=== PATIENT | female | born 1955 | race Hispanic/Latino ===

== ENCOUNTER 2017-07-18 19:01 | Emergency (ER) | payer BC ==
[2017-07-18] MEDS ORDERED: Adacel (T-DAP) 0.5 ML VIAL ONE (19:35)
[2017-07-18] MEDS ORDERED: Proparacaine 0.5% Opth 15 ML BOT ONE (20:27)
== END 2017-07-18 23:01 | disposition home or self-care (01) ==
LOC: ERS 19:01
DX: Z77.098 Contact with and (suspected) exposure to other hazardous, chiefly nonmedicinal, chemicals (principal); H11.001 Unspecified pterygium of right eye; E78.5 Hyperlipidemia, unspecified
CPT/HCPCS: 90471; 90715

== ENCOUNTER 2018-01-13 07:31 | Outpatient (CLI) | payer BC ==
--- NOTE | 2018-01-13 08:36 | ULT ---
ABDOMEN ULTRASOUND: HISTORY: Pain. COMPARISON: None. TECHNIQUE: Utilizing a Multi-Hertz transducer, sonographic imaging of the abdomen is performed in the longitudin al and transverse planes. FINDINGS: The pancreas is obscured by bowel gas. The visualized aorta has a diameter of 1.5 cm. Suboptimal ev aluation of the IVC. Increased echogenicity of the liver may be due to hepatic steatosis or hepatocellular disease. Limit ed evaluation for hepatic masses and intrahepatic biliary dilatation. The right hepatic lobe measure s 17.2 cm. No sonographic evidence of cholelithiasis, gallbladder wall thickening, or pericholecystic fluid. Ne gative Rodrigues sign. Common bile duct diameter is 0.5 cm. The spleen measures 11.7 cm. Bilaterally, no hydronephrosis. There are two separate hypoechoic areas in the left renal cortex, me asuring 2.3 and 2.8 cm, respectively. The left kidney measures 11.6 x 5 x 4.3 cm. The right kidney measures 4 x 9.9 x 4.7 cm. IMPRESSION: Two solid echotexture masses in the left kidney, incompletely evaluated. Correlation made with previ ous CT, 01/28/2017, demonstrates homogeneous attenuation and enhancement of the kidneys. These hypoe choic areas likely represent lobulation of renal parenchyma. Increased echogenicity of the liver due to hepatic steatosis or hepatocellular disease. POS: NE
== END 2018-01-13 07:32 | disposition home or self-care (01) ==
LOC: BICULT 07:31
PROVIDERS: ATTEND Family Medicine
DX: R10.9 Unspecified abdominal pain (principal); R93.422 Abnormal radiologic findings on diagnostic imaging of left kidney
CPT/HCPCS: 76700

== ENCOUNTER 2018-02-13 08:11 | Outpatient (CLI) | payer BC | END 2018-02-13 08:12 | disposition home or self-care (01) | LOC: BICMAMMO 08:11 | PROVIDERS: ATTEND Family Medicine | DX: Z12.31 Encounter for screening mammogram for malignant neoplasm of breast (principal) | CPT/HCPCS: 77063; 77067 ==

== ENCOUNTER 2018-09-06 06:32 | Outpatient (CLI) | payer BC ==
--- NOTE | 2018-09-06 08:07 | ULT ---
ULTRASOUND ABDOMEN: Date: 09/06/18 HISTORY: Abdominal pain. COMPARISON: Ultrasound dated 01/13/18. FINDINGS: Real-time Miller scale with color Doppler and spectral analysis of the abdomen was performed. The pancreas is not well seen. Visualized portions of the aorta and IVC are unremarkable. Diffuse inc reased hepatic echotexture. Gallbladder is normal. Portal vein is patent with antegrade flow. Slight contour and nodularity of the liver. Common bile duct is normal, measuring 5 mm. Gallbladder wall thickness is normal. No pericholecystic fluid. Right kidney measures 12.3 x 4.6 x 5.3 cm. Left kidney measures 12.4 x 4.9 x 4.7 cm. No renal mass, h ydronephrosis, or abnormal calcifications. Spleen measures 11.7 cm in length. IMPRESSION: 1. Diffuse increased hepatic echotexture with slight contour and nodularity may be seen with steatos is versus early hepatocellular disease. 2. No acute gallbladder pathology. POS: C
--- NOTE | 2018-09-06 08:34 | RAD ---
AP pelvis one view HISTORY: Pelvic pain. FINDINGS: Sacral alae and pelvic rings are intact. Mild degenerative changes of the sacroiliac joints and hips. No acute fracture, dislocation, or aggressive osseous erosions. IMPRESSION: Mild osteoarthritic changes of the hips.
--- NOTE | 2018-09-06 08:34 | RAD ---
Left hip 2 views HISTORY: Left hip pain. FINDINGS: Mild joint space narrowing, osteophytosis, and subchondral sclerosis. Femoral head contour is maintained. No acute fracture, dislocation, or aggressive osseous erosions. IMPRESSION: Mild osteoarthritic changes left hip.
== END 2018-09-06 06:33 | disposition home or self-care (01) ==
LOC: BICULT 06:32
PROVIDERS: ATTEND Family Medicine
DX: M25.552 Pain in left hip (principal); R93.5 Abnormal findings on diagnostic imaging of other abdominal regions, including retroperitoneum; R10.2 Pelvic and perineal pain; M16.0 Bilateral primary osteoarthritis of hip
CPT/HCPCS: 72170; 76700

== ENCOUNTER 2022-12-08 07:54 | Outpatient (CLI) | payer BC, MEDICARE | END 2022-12-08 07:55 | disposition home or self-care (01) | LOC: BICMAMMO 07:54 | PROVIDERS: ATTEND Family Medicine | DX: Z12.31 Encounter for screening mammogram for malignant neoplasm of breast (principal) | CPT/HCPCS: 77063; 77067 ==

== ENCOUNTER 2024-02-28 10:03 | Outpatient (CLI) | payer MEDICARE | END 2024-02-28 10:04 | disposition home or self-care (01) | LOC: BICRAD 10:03 | PROVIDERS: ATTEND Family Medicine | DX: R07.89 Other chest pain (principal); M47.814 Spondylosis without myelopathy or radiculopathy, thoracic region | CPT/HCPCS: 71046; 72070 ==